=== PATIENT | male | born 1980 | race Caucasian/White ===

== ENCOUNTER → 2017-03-18 | Day surgery (SDC) | payer OTHER ==
[~2017-03-18] VITALS: Ht 170.2 cm; Wt 76.7 kg
[~2017-03-18] MED LIST: 0.9% Sodium Chloride 1,000 ML IV SCH; ADV250INH IH; ALBU8.5H2 INHALATION; DICY10CA56 PO; FEXO-106 PO; GABA600T2 PO; MONT10TA23 PO; PANT40TA2 PO; Sodium Chloride LOK Flush 10 mL Syringe IV PRN; TRAM50TA2 PO; fentaNYL-PF 50 mCg/mL 2 mL Inj IVPUSH PRN
[2017-03-18 13:21] VITALS: BP 130/77; PULSE 65; O2SAT 97
[2017-03-18 14:08] VITALS: BP 131/68; PULSE 70; RESP 14; O2SAT 96
[2017-03-18 14:18] VITALS: BP 127/67; PULSE 82; RESP 14; O2SAT 97
[2017-03-18 14:27] VITALS: BP 147/82; PULSE 90; RESP 14; O2SAT 98
--- NOTE | 2017-03-18 14:34 | ENDO ---
[address] [address] ENDOSCOPY PROCEDURE PATIENT: ADRI ANTON : 1980 MR#: [id number] ADMIT: 03/18/2017 JOB ID: [id number] TITLE OF OPERATION: Colonoscopy with biopsy. PREOPERATIVE DIAGNOSIS(ES): Diarrhea. POSTOPERATIVE DIAGNOSIS(ES): Normal colonoscopy status post biopsy. ANESTHESIA: Fentanyl 200 mcg, versed 10 mg IV administered. COMPLICATIONS: None. BLOOD LOSS: Minimal. DESCRIPTION OF PROCEDURE: After the risks and benefits were explained to the patient, informed consent was obtained. After anesthesia was administered, the colonoscope was inserted from the rectum to the terminal mucosa and the mucosa carefully examined. Prep of the patient was excellent. After the procedure was done, the scope was withdrawn and the procedure was terminated. FINDINGS: Upon inspection of the anus, no masses, hemorrhoids, ulcers, or fissures that were seen. Throughout the entire examination no polyps, masses, or lesions. Biopsies taken of the terminal ileum and random colon. Retroflexion normal. IMPRESSION: Normal colonoscopy, status post biopsy. RECOMMENDATION: Await pathology results. Follow up in GI Clinic as needed.
--- NOTE | 2017-03-21 15:04 | PATH ---
SURGICAL PATHOLOGY Attending Physician:Tyson Briggs MD CASE STATUS: Signed Out PATIENT NAME: ADRI ANTON PID: [id number] : 1980 DATE COLLECTED:03/18/2017 00:00 SPECIMEN: 1: Ileum, Biopsy 2: Colon, Biopsy CLINICAL HISTORY: 1). TEMINAL ILEUM 2). RANDOM COLON FINAL DIAGNOSIS: 1. Terminal Ileum, Biopsy: Ileal mucosa with no diagnostic abnormality. Negative for active inflammation, granulomata, dysplasia or malignancy. 2. Random Colon, Biopsies: Colonic mucosa with no diagnostic abnormality. Negative for active or microscopic colitis. Negative for granulomata, dysplasia or malignancy. ICD10: R19.7 GROSS DESCRIPTION: The specimens are received in formalin, labeled with the patient's name, and sublabeled as the following: (1) terminal healing; (2) random colon. (1) The specimen consists of multiple fragments of jamison glistening semitranslucent tissue (0.5 x 0.5 x 0.1 cm in aggregate). Section code: (1A) tissue. Specimen entirely submitted. (2) The specimen consists of multiple fragments of jamison glistening semitranslucent tissue (2.2 x 0.5 x 0.1 cm in aggregate). Section code: (2A) tissue. Specimen entirely submitted. 03/20/17 ICD-9 CODES: CPT CODES: 1: 41339 2: 39008 Electronically Signed Out Juanpablo Clark MD, Ph.D. [facility] [address], [place] [address] Technical component performed at [facility], [address] [place] [address] Ave[address], [address]
== END | disposition home or self-care (01) ==
LOC: END 01:05
PROVIDERS: ATTEND Internal Medicine Gastroenterology
DX: R19.7 Diarrhea, unspecified (principal); Z79.899 Other long term (current) drug therapy; Z79.51 Long term (current) use of inhaled steroids
CPT/HCPCS: 45380; 88305; 99153; G0500; J3010; J7030